=== PATIENT | female | born 2000 | race Caucasian/White ===

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

== ENCOUNTER 2021-01-30 01:36 | Emergency (ER) | payer MEDICAID ==
[2021-01-30] MEDS ORDERED: Ondansetron 4 MG Tab.DIS PO ONE (02:12)
[2021-01-30] MEDS ORDERED: Magnesium Citrate Solution 296 ML Bottle ONE (02:50)
[2021-01-30] MEDS ORDERED: Magnesium Citrate Solution 296 ML Bottle PO ONE (02:50)
--- NOTE | 2021-01-30 02:54 | EDM.PDOC ---
ED HPI GENERAL MEDICAL PROBLEM - General Stated Complaint: SIDE PAIN Time Seen by Provider: 01/30/21 01:45 Source of Information: Reports: Patient, EMS History Limitations: Reports: No Limitations - History of Present Illness INITIAL COMMENTS - FREE TEXT/NARRATIVE: c/or R sided abd pain x 2d cramp pain, went to walk-in clinic at 1p yesterday, 13h ago cbc/bmp/ua/HCG were all neg last BM 2d ago and hard took ibuprofen 600 mg before coming in took Miralax and Equate laxative without success on insulin pump for IDDM, no other meds on BCP Right Lower Abdomen Pain Score (Numeric/FACES): 8 - Related Data Allergies Allergy/AdvReac Type Severity Reaction Status Date / Time Penicillins Allergy Hives Verified 07/07/19 23:40 Home Meds: Home Meds Ferrous Sulfate [Iron] 325 mg PO DAILY 10/23/18 [History] Folic Acid 0.8 mg PO DAILY 07/07/19 [History] Insulin Aspart [NovoLOG] 300 unit .XX ASDIRECTED PRN 07/07/19 [History] Loratadine [Claritin] 10 mg PO DAILY PRN 07/07/19 [History] Aspirin 81 mg PO DAILY 07/08/19 [History] Pnv No.103/Folic/Om3s/Fish Oil [ Gummies] 1 each PO DAILY 07/08/19 [History] Past Medical History - Past Health History Medical/Surgical History: Denies 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: Endocrine/Metabolic History: Reports: Diabetes, Type I - Past Surgical History HEENT Surgical History: Reports: Tonsillectomy Endocrine Surgical History: Reports: Thyroidectomy Social & Family History - Tobacco Use Tobacco Use Status *Q: Unknown Ever Used Tobacco - Caffeine Use Caffeine Use: Reports: Coffee, Soda, Tea - Recreational Drug Use Recreational Drug Use: No ED ROS GENERAL - Review of Systems Review Of Systems: See Below Constitutional: Reports: No Symptoms HEENT: Reports: No Symptoms Respiratory: Reports: No Symptoms Cardiovascular: Reports: No Symptoms Endocrine: Reports: No Symptoms GI/Abdominal: Reports: Constipation, Nausea, Other (did develop slight N here, resolved with Zofran ODT 4 mg) : Reports: No Symptoms Musculoskeletal: Reports: No Symptoms Skin: Reports: No Symptoms Neurological: Reports: No Symptoms Psychiatric: Reports: No Symptoms Hematologic/Lymphatic: Reports: No Symptoms Immunologic: Reports: No Symptoms ED EXAM, GI/ABD - Physical Exam Exam: See Below Exam Limited By: No Limitations General Appearance: Alert, WD/WN, No Apparent Distress Ears: Normal External Exam Nose: Normal Inspection Throat/Mouth: Normal Inspection, Normal Lips, Normal Voice, No Airway Compromise Head: Atraumatic, Normocephalic Neck: Normal Inspection, Supple, Non-Tender Respiratory/Chest: Lungs Clear, Normal Breath Sounds, No Accessory Muscle Use Cardiovascular: Regular Rate, Rhythm, No Edema GI/Abdominal Exam: Normal Bowel Sounds, Soft, No Organomegaly, No Distention, Other (1+ tender along length of R colon) Back Exam: Normal Inspection, Full Range of Motion, NT Extremities: Normal Inspection, Normal Range of Motion, Non-Tender, Normal Capillary Refill, No Pedal Edema Neurological: Alert, Oriented, CN II-XII Intact, Normal Cognition, Normal Gait, No Motor/Sensory Deficits Psychiatric: Normal Affect, Normal Mood Skin Exam: Warm, Dry, Intact, Normal Color, No Rash Lymphatic: No Adenopathy Course - Vital Signs Last Recorded V/S: Last Vital Signs Temp 36.7 C 01/30/21 01:40 Pulse 91 01/30/21 01:40 Resp 14 01/30/21 01:40 BP 126/74 01/30/21 01:40 Pulse Ox 98 01/30/21 01:40 - Orders/Labs/Meds Labs: Laboratory Tests 01/30/21 01/30/21 Range/Units 02:10 02:10 WBC 9.5 (3.0-10.3) x10-3/uL RBC 4.81 (3.60-5.20) x10(6)uL Hgb 12.9 (11.4-15.5) g/dL Hct 40.0 (34.2-48.2) % MCV 83.2 (76.7-100.5) fL MCH 26.9 (23.9-33.9) pg MCHC 32.3 (31.9-34.8) g/dL RDW 15.0 (12.3-16.5) % Plt Count 294 (151-488) x10(3)uL MPV 9.0 (7.1-12.4) fL Neut % (Auto) 60.3 (30.8-76.2) % Lymph % (Auto) 31.6 (18.4-52.1) % [place] % (Auto) 5.3 (4.4-15.7) % Eos % (Auto) 2.2 (0.6-8.1) % Baso % (Auto) 0.6 (0.2-1.5) % Neut # (Auto) 5.7 (1.5-6.3) x10-3/uL Lymph # (Auto) 3.0 (1.0-4.4) x10-3/uL [place] # (Auto) 0.5 (0.3-1.0) x10-3/uL Eos # (Auto) 0.2 (0.0-0.8) x10-3/uL Baso # (Auto) 0.1 (0.0-0.1) x10-3/uL C-Reactive Protein 0.2 L (0.5-0.9) mg/dL Meds: Medications Discontinued Medications Generic Name Dose Route Start Last Admin Trade Name Gustavo PRN Reason Stop Dose Admin Ondansetron HCl 4 mg 01/30/21 02:12 01/30/21 02:15 Ondansetron 4 Mg Tab.Dis PO 01/30/21 02:13 4 mg ONETIME ONE Administration - Re-Assessments/Exams Free Text/Narrative Re-Assessment/Exam: 01/30/21 02:55 hx/PE/labs all c/w constipation with spasm Departure - Departure Time of Disposition: 02:49 Disposition: Home, Self-Care 01 Preliminary Cause of *Q: Sepsis & Multi System Organ Failure Clinical Impression: Colon spasm, Constipation - Discharge Information *PRESCRIPTION DRUG MONITORING PROGRAM REVIEWED*: No *COPY OF PRESCRIPTION DRUG MONITORING REPORT IN PATIENT NEELA: No Instructions: Constipation, Adult Referrals: Lynne Dubose NP [Primary Care Provider] - Additional Instructions: To clean out the bowels, drink a 10-ounce bottle of magnesium citrate. Drink a 2nd one in 6 hours. For pain and cramping, take ibuprofen 200 mg 3 tabs every 6 hours. Use moist heat in tub or shower for 10 minutes every hour as needed. Call if you have additional questions. See your regular doctor in 2-3 days for further recommendations. Sepsis Event Note (ED) - Evaluation Sepsis Screening Result: No Definite Risk - Focused Exam Vital Signs: Vital Signs Temp Pulse Resp BP Pulse Ox 01/30/21 01:40 36.7 C 91 14 126/74 98
== END 2021-01-30 03:06 | disposition home or self-care (01) ==
LOC: FB.ED 01:36
DX: K58.1 Irritable bowel syndrome with constipation (principal); E10.9 Type 1 diabetes mellitus without complications; Z88.0 Allergy status to penicillin; Z79.82 Long term (current) use of aspirin
CPT/HCPCS: 36415; 85025; 86140; 99284; A9270; 99283

== ENCOUNTER 2021-03-23 19:53 | Emergency (ER) | payer MEDICAID ==
[2021-03-23] MEDS ORDERED: Ondansetron 4 MG Tab.DIS PO STA (20:20)
[2021-03-23] MEDS ORDERED: Cephalexin 500 MG Cap PO STA (20:20)
--- NOTE | 2021-03-23 20:27 | EDM.PDOC ---
ED HPI GENERAL MEDICAL PROBLEM - General Chief Complaint: Genitourinary Problem Stated Complaint: LOWER BACK PAIN-PREG Time Seen by Provider: 03/23/21 20:05 Source of Information: Reports: Patient History Limitations: Reports: No Limitations - History of Present Illness INITIAL COMMENTS - FREE TEXT/NARRATIVE: Patient presented to the ED because of dysuria, urgency,frequency for 1 day. There is no fever,chills, nausea but no vomiting. She is AOG unknown. There is no vaginal bleeding or discharge. Bilateral Flank Pain Score (Numeric/FACES): 6 - Related Data Allergies Allergy/AdvReac Type Severity Reaction Status Date / Time Penicillins Allergy Hives Verified 07/07/19 23:40 Home Meds: Home Meds Ferrous Sulfate [Iron] 325 mg PO DAILY 10/23/18 [History] Folic Acid 0.8 mg PO DAILY 07/07/19 [History] Insulin Aspart [NovoLOG] 300 unit .XX ASDIRECTED PRN 07/07/19 [History] Loratadine [Claritin] 10 mg PO DAILY PRN 07/07/19 [History] Aspirin 81 mg PO DAILY 07/08/19 [History] Pnv No.103/Folic/Om3s/Fish Oil [ Gummies] 1 each PO DAILY 07/08/19 [History] Ondansetron [Zofran ODT] 4 mg PO Q4H PRN #10 tab.dis 03/23/21 [Rx] cephALEXin [Keflex] 500 mg PO Q8H #21 cap 03/23/21 [Rx] Past Medical History - Past Health History Medical/Surgical History: Denies Medical/Surgical History Genitourinary History: Reports: UTI, Recurrent 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: Endocrine/Metabolic History: Reports: Diabetes, Type I - Past Surgical History HEENT Surgical History: Reports: Tonsillectomy Endocrine Surgical History: Reports: Thyroidectomy Social & Family History - Tobacco Use Tobacco Use Status *Q: Never Tobacco User - Caffeine Use Caffeine Use: Reports: Soda - Recreational Drug Use Recreational Drug Use: No ED ROS GENERAL - Review of Systems Review Of Systems: See Below Constitutional: Reports: No Symptoms HEENT: Reports: No Symptoms Respiratory: Reports: No Symptoms Cardiovascular: Reports: No Symptoms Endocrine: Reports: No Symptoms GI/Abdominal: Reports: No Symptoms : Reports: Dysuria, Flank Pain, Frequency, Urgency Musculoskeletal: Reports: No Symptoms Skin: Reports: No Symptoms Neurological: Reports: No Symptoms Psychiatric: Reports: No Symptoms ED EXAM, RENAL/ - Physical Exam Exam: See Below Exam Limited By: No Limitations General Appearance: Alert, No Apparent Distress Ears: Normal External Exam, Normal Canal, Hearing Grossly Normal Nose: Normal Inspection, Normal Mucosa Throat/Mouth: Normal Inspection, Normal Lips, Normal Teeth, Normal Oropharynx Head: Atraumatic, Normocephalic Neck: Normal Inspection, Supple, Non-Tender, Full Range of Motion Respiratory/Chest: No Respiratory Distress, Lungs Clear, Normal Breath Sounds, No Accessory Muscle Use Cardiovascular: Normal Peripheral Pulses, Regular Rate, Rhythm, No Edema, No Gallop, No JVD, No Murmur GI/Abdominal: Normal Bowel Sounds, Soft, Non-Tender Back Exam: Normal Inspection Extremities: Normal Inspection Neurological: Alert, Oriented, CN II-XII Intact Course - Vital Signs Text/Narrative:: Urine specin is not a good one. Since she is symptomatic will just treat her accordingly. Last Recorded V/S: Last Vital Signs Temp 37.7 C 03/23/21 20:02 Pulse 88 03/23/21 20:02 Resp 18 03/23/21 20:02 BP 119/83 03/23/21 20:02 Pulse Ox 98 03/23/21 20:02 - Orders/Labs/Meds Meds: Medications Discontinued Medications Generic Name Dose Route Start Last Admin Trade Name Freq PRN Reason Stop Dose Admin Cephalexin 500 mg 03/23/21 20:20 03/23/21 20:34 Cephalexin 500 Mg Cap PO 03/23/21 20:21 500 mg NOW STA Administration Ondansetron HCl 4 mg 03/23/21 20:20 03/23/21 20:34 Ondansetron 4 Mg Tab.Dis PO 03/23/21 20:21 4 mg NOW STA Administration Departure - Departure Time of Disposition: 20:35 Disposition: Home, Self-Care 01 Condition: Good Clinical Impression: UTI (urinary tract infection) - Discharge Information Prescriptions: cephALEXin [Keflex] 500 mg PO Q8H #21 cap Ondansetron [Zofran ODT] 4 mg PO Q4H PRN #10 tab.dis PRN Reason: Nausea Instructions: and Urinary Tract Infection Referrals: Lynen Dubose NP [Primary Care Provider] - Forms: ED Department Discharge Additional Instructions: Please read discharge instructions on UTI Drink at least 2 liters of fluid daily Zofran ODT 4 mg every 4 hours as needed for nausea Keflex/cephalexin 500 mg 3 times daily for 7 days Tylenol 1000 mg every 8 hours as needed for pain Follow up with your doctor if symptoms persist or if you develop fever,chills, nausea,vomiting,flank pain which are all signs and symptoms of kidney infection Sepsis Event Note (ED) - Evaluation Sepsis Screening Result: No Definite Risk - Focused Exam Vital Signs: Vital Signs Temp Pulse Resp BP Pulse Ox 03/23/21 20:02 37.7 C 88 18 119/83 98
== END 2021-03-23 20:51 | disposition home or self-care (01) ==
LOC: FB.ED 19:53
DX: O23.41 Unspecified infection of urinary tract in pregnancy, first trimester (principal); Z3A.00 Weeks of gestation of pregnancy not specified; O24.414 Gestational diabetes mellitus in pregnancy, insulin controlled; Z79.82 Long term (current) use of aspirin; Z72.0 Tobacco use; Z79.899 Other long term (current) drug therapy
CPT/HCPCS: 99283; A9270-GY

== ENCOUNTER 2021-07-05 23:06 | Emergency (ER) | payer MEDICAID ==
[2021-07-05] MEDS ORDERED: Meclizine 25 MG Tab PO ONE (23:07)
--- NOTE | 2021-07-05 23:44 | EDM.PDOC ---
ED HPI GENERAL MEDICAL PROBLEM - General Chief Complaint: Respiratory Problem Stated Complaint: CHEST PAIN/DIZZY/PREG/FLU SHOT TODAY Time Seen by Provider: 07/05/21 23:37 Source of Information: Reports: Patient, Old Records, RN History Limitations: Reports: No Limitations - History of Present Illness INITIAL COMMENTS - FREE TEXT/NARRATIVE: 21 yo female who is got a flu shot today. Now has mild vertigo and sharp pain with breathing since. No calf pain, fever, or SOB. Took acetaminophen before coming in with partial relief of her CP. No past hx of PE or DVT. Onset: Today Onset Date: 07/05/21 Duration: Hour(s):, Constant (vertigo), Improving (pleuritic pain) Location: Reports: Head (vertigo), Chest (pleurisy) Quality: Reports: Sharp (chest ) Severity: Mild (now, was moderate before acetaminophen) Improves with: Reports: Medication Worsens with: Reports: Other (?) Context: Reports: Other (See HPI) Associated Symptoms: Reports: No Other Symptoms. 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 - Past Surgical History HEENT Surgical History: Reports: Tonsillectomy Endocrine Surgical History: Reports: Thyroidectomy Social & Family History - Family History Family Medical History: No Pertinent Family History - Caffeine Use Caffeine Use: Reports: Soda ED ROS GENERAL - Review of Systems Review Of Systems: See Below Constitutional: Reports: No Symptoms HEENT: Reports: No Symptoms, Vertigo Respiratory: Reports: Pleuritic Chest Pain Cardiovascular: Reports: No Symptoms Endocrine: Reports: No Symptoms GI/Abdominal: Reports: No Symptoms : Reports: No Symptoms Musculoskeletal: Reports: No Symptoms Skin: Reports: No Symptoms Neurological: Reports: No Symptoms. Denies: Dizziness, Headache Psychiatric: Reports: No Symptoms ED EXAM, GENERAL - Physical Exam Exam: See Below Exam Limited By: No Limitations General Appearance: Alert, WD/WN, No Apparent Distress Eye Exam: Bilateral Eye: EOMI, Normal Inspection, PERRL Ears: Normal External Exam, Normal Canal, Hearing Grossly Normal, Normal TMs Ear Exam: Bilateral Ear: Auricle Normal, Canal Normal, TM normal Nose: Normal Inspection, No Blood Throat/Mouth: Normal Inspection, Normal Lips, Normal Oropharynx, Normal Voice, No Airway Compromise Head: Atraumatic, Normocephalic Neck: Normal Inspection, Supple, Non-Tender Respiratory/Chest: No Respiratory Distress, Lungs Clear, Normal Breath Sounds, No Accessory Muscle Use Cardiovascular: Regular Rate, Rhythm, No Edema Back Exam: Normal Inspection Extremities: Normal Inspection, Normal Range of Motion, Non-Tender, No Pedal Edema. No: Pedal Edema, José Miguel's Sign Neurological: Alert, Oriented, CN II-XII Intact, Normal Cognition, No Motor/Sensory Deficits Psychiatric: Normal Affect, Normal Mood Skin Exam: Warm, Dry, Intact, Normal Color, No Rash #1 Interpretation EKG Date: 07/05/21 Time: 23:15 Rhythm: NSR Rate (Beats/Min): 68 [place]: Normal P-Wave: Present QRS: Normal ST-T: Normal QT: Normal Comparison: NA - No Prior EKG Course - Vital Signs Last Recorded V/S: Last Vital Signs Temp 36.6 C 07/05/21 23:28 Pulse 72 07/05/21 23:28 Resp 16 07/05/21 23:28 BP 124/70 07/05/21 23:28 Pulse Ox 99 07/05/21 23:28 Departure - Departure Time of Disposition: 23:50 Disposition: Home, Self-Care 01 Condition: Good Clinical Impression: Pleurisy, Vertigo Instructions: Pleurisy, [id number], Vertigo, [id number] Referrals: Lynne Dubose NP [Primary Care Provider] - Forms: ED Department Discharge Additional Instructions: Take acetaminophen up to 1000 mg every 6 hrs as needed for your chest pain. Take meclizine as needed for your dizziness. Return as needed. Keep your doctor informed. Sepsis Event Note (ED) - Evaluation Sepsis Screening Result: No Definite Risk - Focused Exam Vital Signs: Vital Signs Temp Pulse Resp BP Pulse Ox 07/05/21 23:28 36.6 C 72 16 124/70 99
== END 2021-07-05 23:58 | disposition home or self-care (01) ==
LOC: FB.ED 23:06
DX: R42 Dizziness and giddiness (principal); R09.1 Pleurisy; E10.9 Type 1 diabetes mellitus without complications; Z88.0 Allergy status to penicillin
CPT/HCPCS: 93005; 99284; A9270